=== PATIENT | female | born 1925 | race Caucasian/White ===

== ENCOUNTER 2017-05-28 10:58 | Emergency (ER) | payer MEDICARE ==
[2017-05-28 11:13] VITALS: BP 136/62; PULSE 80; RESP 19; TEMP 99.1; O2SAT 98
[2017-05-28 11:20] VITALS: RESP 19; O2SAT 98
[2017-05-28] MEDS ORDERED: SODIUM CHLORID 0.9% 500 ML INJ 500 ML IV ONE (11:30)
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
--- NOTE | 2017-05-28 12:00 | RADRPT ---
EXAM DATE/TIME: 05/28/2017 11:37 [facility] COMPARISON: No previous studies available for comparison. INDICATIONS : Weakness. RADIATION DOSE: 45.52 CTDIvol (mGy) MEDICAL HISTORY : Dementia. SURGICAL HISTORY : None. ENCOUNTER: Initial ACUITY: 1 day PAIN SCALE: 0/10 LOCATION: cranial TECHNIQUE: Multiple contiguous axial images were obtained of the head. Using automated exposure control and adj ustment of the mA and/or kV according to patient size, radiation dose was kept as low as reasonably a chievable to obtain optimal diagnostic quality images. DICOM format image data is available electro nically for review and comparison. FINDINGS: The patient's head is canted in the gantry creating asymmetries. CEREBRUM: The ventricles, sulci, and basal cisterns are prominent, characteristic of moderate severity central cortical atrophy. There is also diffuse hypoattenuation in the supratentorial white matter character istic of ischemic demyelination. No evidence of midline shift, mass lesion, hemorrhage or acute infa rction. No extra-axial fluid collections are seen. POSTERIOR FOSSA: The cerebellum and brainstem are intact. The 4th ventricle is midline. The cerebellopontine angle i s unremarkable. EXTRACRANIAL: The visualized portion of the orbits is intact. SKULL: The calvaria is intact. No evidence of skull fracture. CONCLUSION: 1. No acute findings in the brain. 2. Moderate severity central and cortical atrophy. Rufino Goldsmith MD on May 28, 2017 at 11:57 Board Certified Radiologist. This report was verified electronically.
[2017-05-28] MEDS ORDERED: LORazepam 2 MG/ML VIAL IV PUSH ONE (12:30)
[2017-05-28 12:43] LABS: AUTOMATED NEUTROPHIL # 5.1 TH/MM3 (1.8-7.7); BASOPHIL # 0.1 TH/MM3 (0-0.2); BASOPHIL % 0.8 % (0.0-2.0); EOSINOPHIL # 0.1 TH/MM3 (0-0.4); EOSINOPHIL % 1.6 % (0.0-4.0); HEMATOCRIT 36.7 % (35.0-46.0); HEMOGLOBIN 12.4 GM/DL (11.6-15.3); LYMPH % 17.3 % (9.0-44.0); LYMPHOCYTE # 1.2 TH/MM3 (1.0-4.8); MEAN CELL VOLUME 93.4 FL (80.0-100.0); MEAN CORPUSCULAR HEMOGLOBIN 31.7 PG (27.0-34.0); MEAN CORPUSCULAR HGB CONC 33.9 % (32.0-36.0); MONO % 9.6 % (0.0-8.0); MONOCYTE # 0.7 TH/MM3 (0-0.9); NEUT % 70.7 % (16.0-70.0); PLATELET COUNT 289 TH/MM3 (150-450); RED BLOOD COUNT 3.93 MIL/MM3 (4.00-5.30); RED CELL DISTRIBUTION WIDTH 13.4 % (11.6-17.2); WHITE BLOOD COUNT 7.2 TH/MM3 (4.0-11.0)
[2017-05-28 13:01] LABS: ALBUMIN 3.3 GM/DL (3.4-5.0); AST (GOT) 16 U/L (15-37); BICARBONATE 29.2 MEQ/L (21.0-32.0); BLOOD UREA NITROGEN 17 MG/DL (7-18); CHLORIDE 95 MEQ/L (98-107); CREATININE 0.53 MG/DL (0.50-1.00); GLOMERULAR FILTRATION RATE 109 ML/MIN (>89); GLUCOSE,RANDOM 86 MG/DL (74-106); MAGNESIUM 2.2 MG/DL (1.5-2.5); SODIUM (NA) 131 MEQ/L (136-145)
[2017-05-28 13:02] LABS: ALT (GPT) 11 U/L (10-53)
--- NOTE | 2017-05-28 13:03 | RADRPT ---
EXAM DATE/TIME: 05/28/2017 12:08 [facility] COMPARISON: No previous studies available for comparison. INDICATIONS : Cough, weakness, appears confused MEDICAL HISTORY : unobtainable SURGICAL HISTORY : unobtainable ENCOUNTER: Initial ACUITY: 1 day PAIN SCORE: Non-responsive. LOCATION: Bilateral chest FINDINGS: The heart is normal in size. There are chronic interstitial changes within the pulmonary parenchyma. The lungs are otherwise clear. The visualized bony structures are intact. CONCLUSION: 1. Chronic appearing interstitial changes. No acute abnormality. Clive Gautam MD on May 28, 2017 at 13:01 Board Certified Radiologist. This report was verified electronically.
[2017-05-28 13:12] LABS: ALKALINE PHOSPHATASE 93 U/L (45-117); TOTAL BILIRUBIN ADULT 0.4 MG/DL (0.2-1.0); TOTAL PROTEIN 6.7 GM/DL (6.4-8.2); TROPONIN I LESS THAN 0.02 NG/ML (0.02-0.05)
[2017-05-28 13:36] LABS: BILIRUBIN, URINE NEG (NEG); BLOOD, URINE NEG (NEG); GLUCOSE,URINE NEG (NEG); KETONE, URINE NEG (NEG); NITRITE,URINE NEG (NEG); SQUAMOUS EPITHELIAL CELL URINE <1 /hpf (0-5); URINE COLOR YELLOW (YELLW/STRAW); URINE LEUKOCYTE ESTERASE NEG (NEG)
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
[2017-05-28 18:17] VITALS: BP 155/65; PULSE 95; RESP 18; O2SAT 98
--- NOTE | 2017-05-29 13:53 | EKG ---
Date Performed: 05/28/2017 Time Performed: 11:27:58 PTAGE: 89 years EKG: Sinus rhythm POSSIBLE LEFT ATRIAL ENLARGEMENT INDETERMINATE AXIS RIGHT BUNDLE BRANCH BLOCK LEFT POSTERIOR FASCICU LAR BLOCK ABNORMAL ECG NO PREVIOUS TRACING 05/28/2017 1127 DOCTOR: Carli Dunn Interpretating Date/Time 05/29/2017 13:51:06
== END 2017-05-28 18:25 ==
LOC: NEPE 10:58
DX: G30.1 Alzheimer's disease with late onset (principal); F02.80 Dementia in other diseases classified elsewhere, unspecified severity, without behavioral disturbance, psychotic disturbance, mood disturbance, and anxiety; T74.91XA Unspecified adult maltreatment, confirmed, initial encounter; R94.31 Abnormal electrocardiogram [ECG] [EKG]; Y07.9 Unspecified perpetrator of maltreatment and neglect
CPT/HCPCS: 70450; 71045; 80053; 81001; 82550; 83735; 84443; 84484; 85025; 85610; 85730; 93005; 96361; 96374; 99285; J2060; J7040